=== PATIENT | male | born 1955 | race American Indian/Alaskan Native ===

== ENCOUNTER 2019-07-29 20:55 | Inpatient (IN) | payer OTHER ==
--- NOTE | 2019-07-29 21:23 | Emergency Department Report ---
Blank Doc - Documentation Documentation: 63-year-old male that presents with abdominal pain with chest pain. This initial assessment/diagnostic orders/clinical plan/treatment(s) is/are subject to change based on patient's health status, clinical progression and re- assessment by fellow clinical providers in the ED. Further treatment and workup at subsequent clinical providers discretion. Patient/guardians urged not to elope from the ED as their condition may be serious if not clinically assessed and managed. Initial orders include: 1- Patient sent to [facility] for further evaluation and treatment 2- labs 3- EKG 4- CXR 5- UA
[2019-07-29 22:23] LABS: Basophils % (Auto) 0.4 % (0.0-1.8); Eosinophils % (Auto) 0.2 % (0.0-4.3); Hematocrit 43.1 % (35.5-45.6); Lymphocytes % (Auto) 13.5 % (13.4-35.0); Mean Corpuscular HGB Conc 35 % (32-34); Mean Corpuscular Volume 96 fl (84-94); Monocytes # (Auto) 0.6 K/mm3 (0.0-0.8); Platelet Count 339 K/mm3 (140-440); Red Blood Count 4.49 M/mm3 (3.65-5.03); Red Cell Distribution Width 13.4 % (13.2-15.2)
--- NOTE | 2019-07-29 22:26 | XRay Report ---
CHEST 2 VIEWS INDICATION: Chest Pain. COMPARISON: None FINDINGS: Support devices: None. Heart: Within normal limits. Lungs: No acute air space or interstitial disease. Pleura: No significant pleural effusion. No pneumothorax. Additional findings: None. IMPRESSION: 1. No acute findings. Signer Name: Franko Redman MD Signed: 07/29/2019 10:22 PM Workstation Name: [id number]
[2019-07-29 22:51] LABS: Alanine Aminotransferase 98 units/L (7-56); BUN/Creatinine Ratio 8; Blood Urea Nitrogen 7 mg/dL (9-20); Calcium 9.7 mg/dL (8.4-10.2); Hemolysis Index 1
[2019-07-29 23:03] LABS: INR 1.04 (0.87-1.13); Partial Thromboplastin Time 30.3 Sec. (24.2-36.6)
[2019-07-30 02:00] LABS: Bilirubin,Urine NEG (Negative); Blood,Urine NEG (Negative); Color,Urine Amber (Yellow); Protein,Urine <15 mg/dL mg/dL (Negative)
[2019-07-30] MEDS ORDERED: DILAUDID IV ONE (03:00)
[2019-07-30] MEDS ORDERED: ZOFRAN IV ONE (03:00)
[2019-07-30] MEDS ORDERED: NACL 0.9% 1000 ML 1,000 ML IV ONE (03:00)
[2019-07-30] MEDS ORDERED: ZOFRAN ONE (03:07)
[2019-07-30] MEDS ORDERED: DILAUDID ONE (03:07)
[2019-07-30] MEDS ORDERED: NACL 0.9% 1000 ML 1,000 ML ONE ×2 (03:08→06:48)
--- NOTE | 2019-07-30 04:42 | Cat Scan Report ---
CT ABDOMEN AND PELVIS WITH CONTRAST INDICATION: Epigastric pain for 2 days CONTRAST: 100 cc Omnipaque 300 IV COMPARISON: None available. All CT scans at this location are performed using CT dose reduction for ALARA by means of automated e xposure control. FINDINGS: Mild bibasilar atelectatic changes are seen. No pneumoperitoneum is noted. A 1 cm probable cyst is noted in the spleen posteriorly. Fatty infiltration of the liver is seen without focal mass n oted. No urinary obstructive changes are seen. No evidence of bowel obstruction is noted. Right colon ic surgical changes are noted removal of the appendix. Colonic diverticulosis is seen without evidenc e of diverticulitis. No lymphadenopathy is seen. Small hiatal hernia is noted. Prostate shows a small central protrusion superiorly into the base of the bladder which is a somewhat nodular appearance an d measures 18 mm in diameter. No other bladder abnormalities are seen. Multiple tiny gallstones are seen with sludge. Borderline gallbladder wall prominence is seen and the re may be slight fluid within the wall. There is prominent biliary dilatation, both intrahepatic and extrahepatic. Innumerable tiny calculi are seen throughout the mid to lower portions of the common bi le duct. These are seen to the ampullary level. The pancreatic duct is mildly prominent at 4 mm. No p ancreatic mass is seen. There is moderate inflammation of the pancreas diffusely. No pseudocyst is se en. No obvious necrosis or hemorrhage are seen. IMPRESSION: 1. Gallstone pancreatitis with prominent choledocholithiasis, mild pancreatic ductal dilatation, and moderate diffuse pancreatitis without obvious complication. Biliary dilatation is prominent. Cholelit hiasis is seen with borderline gallbladder wall prominence and possible mild internal edema in the wa ll. 2. Prostate shows a central protrusion, somewhat nodular, into the base of the bladder. Clinical josefina elation is suggested. Signer Name: Shine Alegria MD Signed: 07/30/2019 4:37 AM Workstation Name: [employer]
[2019-07-30] MEDS ORDERED: SODIUM CHLORIDE FLUSH SYRINGE 10 ML IV PRN (04:56)
[2019-07-30] MEDS ORDERED: TYLENOL PO PRN (04:56)
[2019-07-30] MEDS ORDERED: ZOFRAN IV PRN (04:56)
[2019-07-30] MEDS ORDERED: REGLAN IV PRN (04:56)
[2019-07-30] MEDS ORDERED: MORPHINE IV PRN (04:56)
[2019-07-30] MEDS ORDERED: DILAUDID IV PRN (04:56)
--- NOTE | 2019-07-30 05:02 | History and Physical Report ---
<JUSTIN BALTAZAR - Last Filed: 07/30/19 05:34> History of Present Illness Date of examination: 07/30/19 Date of admission: 07/30/2019 Chief complaint: Abdominal pain, nausea, vomiting History of present illness: 63-year-old -Vietnamese male with history of BPH, HIV, hepatitis C, hypertension, tobacco abuse, marijuana abuse who presents [facility] with complaints of intermittent nausea and vomiting for the past week and half. Patient states that since Day he has been experiencing intermittent diffuse abdominal pain, nausea, and vomiting. Patient also complains of intermittent chest pain which is precipitated by his abdominal pain. He denies diarrhea. Patient states that he receives all his medical care at [facility]. He admits to being compliant with all medications. Denies: Headache,diarrhea, fever, hemoptysis, hematemesis, hematochezia, melena, shortness of breath, or recent sick contact Past History Past Medical History: HIV/AIDS, hypertension, other (BPH) Past Surgical History: appendectomy Social history: , lives with family (with sister), smoking (smokes cigar and marijuana), other (drinks beer occasionally) Family history: no significant family history Medications and Allergies Allergies Allergy/AdvReac Type Severity Reaction Status Date / Time ciprofloxacin Allergy Itching Verified 07/30/19 05:30 Home Medications Medication Instructions Recorded Confirmed Last Taken Type Emtricita/Rilpivirine/Tenof Df 1 each PO DAILY 07/30/19 07/30/19 Unknown History [Complera Tablet] Tamsulosin [Flomax] 0.4 mg PO QDAY 07/30/19 07/30/19 Unknown History amLODIPine [Norvasc] 10 mg PO DAILY 07/30/19 07/30/19 Unknown History HYDROcodone/APAP 5-325 [[place] 1 each PO Q6HR PRN #10 tablet 07/31/19 Unknown Rx 5/325] Review of Systems All systems: negative Gastrointestinal: abdominal pain, nausea, vomiting Genitourinary Male: urinary hesitancy Exam - Physical Exam Narrative exam: Physical exam General appearance: Present: No acute distress, alert and oriented 3, well- developed well-nourished, -Vietnamese male - EENT Eyes: Present: PERRL, EOM intact ENT: hearing intact, missing teeth - Neck Neck: Present: supple, normal ROM - Respiratory Respiratory effort: Non-labored Respiratory: CTA bilaterally - Cardiovascular Heart rate: 70(bpm) Rhythm: SR Heart Sounds: Present: S1 & S2. Absent: rub, click - Extremities Extremities: no ischemia, pulses intact, - Peripheral Assessment Peripheral Pulses: within normal limits - Abdominal General gastrointestinal: soft, non-tender, normal bowel sounds - Integumentary Integumentary: Present: warm, dry, - Musculoskeletal Musculoskeletal: Normal gait -Neurological Neurological: CN II-XII grossly intact - Psychiatric Psychiatric: cooperative - Constitutional Vitals: Temp Pulse Resp BP Pulse Ox 98.5 F 67 14 149/92 98 07/30/19 01:45 07/30/19 01:45 07/30/19 01:45 07/30/19 01:45 07/30/19 01:45 Results - Labs CBC & Chem 7: 07/29/19 21:48 07/29/19 21:48 Labs: Laboratory Last Values WBC 7.7 K/mm3 (4.5-11.0) 07/29/19 21:48 RBC 4.49 M/mm3 (3.65-5.03) 07/29/19 21:48 Hgb 15.0 gm/dl (11.8-15.2) 07/29/19 21:48 Hct 43.1 % (35.5-45.6) 07/29/19 21:48 MCV 96 fl (84-94) H 07/29/19 21:48 MCH 34 pg (28-32) H 07/29/19 21:48 MCHC 35 % (32-34) H 07/29/19 21:48 RDW 13.4 % (13.2-15.2) 07/29/19 21:48 Plt Count 339 K/mm3 (140-440) 07/29/19 21:48 Lymph % (Auto) 13.5 % (13.4-35.0) 07/29/19 21:48 [place] % (Auto) 8.0 % (0.0-7.3) H 07/29/19 21:48 Eos % (Auto) 0.2 % (0.0-4.3) 07/29/19 21:48 Baso % (Auto) 0.4 % (0.0-1.8) 07/29/19 21:48 Lymph # 1.0 K/mm3 (1.2-5.4) L 07/29/19 21:48 [place] # 0.6 K/mm3 (0.0-0.8) 07/29/19 21:48 Eos # 0.0 K/mm3 (0.0-0.4) 07/29/19 21:48 Baso # 0.0 K/mm3 (0.0-0.1) 07/29/19 21:48 Seg Neutrophils % 77.9 % (40.0-70.0) H 07/29/19 21:48 Seg Neutrophils # 6.0 K/mm3 (1.8-7.7) 07/29/19 21:48 PT 13.3 Sec. (12.2-14.9) 07/29/19 21:48 INR 1.04 (0.87-1.13) 07/29/19 21:48 APTT 30.3 Sec. (24.2-36.6) 07/29/19 21:48 Sodium 138 mmol/L (137-145) 07/29/19 21:48 Potassium 4.0 mmol/L (3.6-5.0) 07/29/19 21:48 Chloride 100.8 mmol/L (98-107) 07/29/19 21:48 Carbon Dioxide 22 mmol/L (22-30) 07/29/19 21:48 19 mmol/L 07/29/19 21:48 BUN 7 mg/dL (9-20) L 07/29/19 21:48 0.9 mg/dL (0.8-1.5) 07/29/19 21:48 Estimated GFR > 60 ml/min 07/29/19 21:48 8 % 07/29/19 21:48 Glucose 131 mg/dL (75-100) H 07/29/19 21:48 Calcium 9.7 mg/dL (8.4-10.2) 07/29/19 21:48 3.30 mg/dL (0.1-1.2) H 07/29/19 21:48 AST 94 units/L (5-40) H 07/29/19 21:48 ALT 98 units/L (7-56) H 07/29/19 21:48 381 units/L (35-129) H 07/29/19 21:48 < 0.010 ng/mL (0.00-0.029) 07/30/19 00:16 7.5 g/dL (6.3-8.2) 07/29/19 21:48 4.0 g/dL (3.9-5) 07/29/19 21:48 1.1 % 07/29/19 21:48 758 units/L (13-60) H 07/29/19 21:48 Mia (Yellow) 07/30/19 01:38 Clear (Clear) 07/30/19 01:38 7.0 (5.0-7.0) 07/30/19 01:38 Ur Specific [place] 1.009 (1.003-1.030) 07/30/19 01:38 <15 mg/dl mg/dL (Negative) 07/30/19 01:38 Neg mg/dL (Negative) 07/30/19 01:38 Tr mg/dL (Negative) 07/30/19 01:38 Neg (Negative) 07/30/19 01:38 Neg (Negative) 07/30/19 01:38 Neg (Negative) 07/30/19 01:38 2.0 mg/dL (<2.0) 07/30/19 01:38 Ur Leukocyte Esterase Neg (Negative) 07/30/19 01:38 1.0 /HPF (0.0-6.0) 07/30/19 01:38 2.0 /HPF (0.0-6.0) 07/30/19 01:38 - Imaging and Cardiology Imaging and Cardiology: CT Abdomen/Pelvis: FINDINGS: Mild bibasilar atelectatic changes are seen. No pneumoperitoneum is noted. A 1 cm probable cyst is noted in the spleen posteriorly. Fatty infiltration of the liver is seen withoutfocal mass noted. No urinary obstructive changes are seen. No evidence of bowel obstruction is noted. Right colonic surgical changes are noted removal of the appendix. Colonic divertic ulosis is seen without evidence of diverticulitis. No lymphadenopathy is seen. Small hiatal hernia is noted. Prostate shows a small central protrusion superiorly into the base of the bladder which is a somewhat nodular appearance and measures 18 mm in diameter. No other bladder abnormalities are seen. Multiple tiny gallstones are seen with sludge. Borderline gallbladder wall prominence is seen and there may be slight fluid within the wall. There is prominent biliary dilatation, both intrahepatic and extrahepatic. Innumerable tiny calculi are seen throughout the mid to lower portions of the common bile duct. These are seen to the ampullary level. The pancreatic duct is mildly prominent at 4 mm. No pancreatic mass is seen. There is moderate inflammation of the pancreas diffusely. No pseudocyst is seen. No obvious necrosis or hemorrhage are seen. IMPRESSION: 1. Gallstone pancreatitis with prominent choledocholithiasis, mild pancreatic ductal dilatation, and moderate diffuse pancreatitis without obvious complication. Biliary dilatation is prominent. Cholelithiasis is seen with borderline gallbladder wall prominence and possible mild internal edema in the wall. 2. Prostate shows a central protrusion, somewhat nodular, into the base of the bladder. Clinical correlation is suggested. CXR: FINDINGS: Support devices: None. Heart: Within normal limits. Lungs: No acute air space or interstitial disease. Pleura: No significant pleural effusion. No pneumothorax. Additional findings: None. IMPRESSION: 1. No acute findings. Assessment and Plan Assessment and plan: 63-year-old -Vietnamese male with history of BPH, HIV, hepatitis C, hypertension, tobacco abuse, marijuana abuse who presents [facility] with complaints of intermittent nausea and vomiting for the past week and half. Pancreatitis Cholelithiasis -CT Abd/Pelvis revealed pancreatitis with prominent choledocholithiasis, mild pancreatic ductal dilatation, and moderate diffuse pancreatitis without obvious complication. Cholelithiasis is seen with borderline gallbladder wall prominence and possible mild internal edema in the wall -Continue supportive care -Pain mgmt -NPO -On IVF -GI consult pending -General surgery consult pending Hypertension -Continue to monitor BP -Resume home antihypertensive meds to optimize BP once medication reconciliation is completed -IV hydralazine when necessary HIV positive -Resume Complera once home medication reconciliation is completed Tobacco Abuse -Smokes cigar every other day -Counseled for cessation -Nicotine patch PRN Marijuana Abuse -Self-reports daily marijuana use -Counseled for cessation DVT PPX -On Lovenox Advance Directives: No VTE prophylaxis?: Chemical Plan of care discussed with patient/family: Yes <JESSIE REESE - Last Filed: 08/01/19 00:39> History of Present Illness Date of admission: 07/30/19 06:17 Exam - Constitutional Vitals: Temp Pulse Resp BP Pulse Ox 98.0 F 47 L 15 140/74 96 07/31/19 16:17 07/31/19 16:17 07/31/19 16:17 07/31/19 16:17 07/31/19 16:17 Results - Labs CBC & Chem 7: 07/31/19 05:37 07/31/19 05:37 Labs: Laboratory Last Values WBC 6.0 K/mm3 (4.5-11.0) 07/31/19 05:37 RBC 4.42 M/mm3 (3.65-5.03) 07/31/19 05:37 Hgb 14.5 gm/dl (11.8-15.2) 07/31/19 05:37 Hct 42.5 % (35.5-45.6) 07/31/19 05:37 MCV 96 fl (84-94) H 07/31/19 05:37 MCH 33 pg (28-32) H 07/31/19 05:37 MCHC 34 % (32-34) 07/31/19 05:37 RDW 13.5 % (13.2-15.2) 07/31/19 05:37 Plt Count 282 K/mm3 (140-440) 07/31/19 05:37 Lymph % (Auto) 13.5 % (13.4-35.0) 07/29/19 21:48 [place] % (Auto) 8.0 % (0.0-7.3) H 07/29/19 21:48 Eos % (Auto) 0.2 % (0.0-4.3) 07/29/19 21:48 Baso % (Auto) 0.4 % (0.0-1.8) 07/29/19 21:48 Lymph # 1.0 K/mm3 (1.2-5.4) L 07/29/19 21:48 [place] # 0.6 K/mm3 (0.0-0.8) 07/29/19 21:48 Eos # 0.0 K/mm3 (0.0-0.4) 07/29/19 21:48 Baso # 0.0 K/mm3 (0.0-0.1) 07/29/19 21:48 Seg Neutrophils % 77.9 % (40.0-70.0) H 07/29/19 21:48 Seg Neutrophils # 6.0 K/mm3 (1.8-7.7) 07/29/19 21:48 PT 12.8 Sec. (12.2-14.9) 07/30/19 10:33 INR 0.99 (0.87-1.13) 07/30/19 10:33 APTT 30.3 Sec. (24.2-36.6) 07/29/19 21:48 Sodium 138 mmol/L (137-145) 07/31/19 05:37 Potassium 3.8 mmol/L (3.6-5.0) 07/31/19 05:37 Chloride 100.6 mmol/L (98-107) 07/31/19 05:37 Carbon Dioxide 21 mmol/L (22-30) L 07/31/19 05:37 20 mmol/L 07/31/19 05:37 BUN 8 mg/dL (9-20) L 07/31/19 05:37 0.9 mg/dL (0.8-1.5) 07/31/19 05:37 Estimated GFR > 60 ml/min 07/31/19 05:37 9 % 07/31/19 05:37 Glucose 87 mg/dL (75-100) 07/31/19 05:37 Calcium 9.2 mg/dL (8.4-10.2) 07/31/19 05:37 4.20 mg/dL (0.1-1.2) H 07/31/19 05:37 3.6 mg/dL (0-0.2) H 07/30/19 10:33 0.7 mg/dL 07/30/19 10:33 AST 83 units/L (5-40) H 07/31/19 05:37 ALT 76 units/L (7-56) H 07/31/19 05:37 314 units/L (35-129) H 07/31/19 05:37 136 units/L (55-170) 07/31/19 14:13 CK-MB (CK-2) 2.2 ng/mL (0.0-4.0) 07/31/19 14:13 CK-MB (CK-2) Rel Index 1.6 (0-4) 07/31/19 14:13 < 0.010 ng/mL (0.00-0.029) 07/31/19 14:13 6.3 g/dL (6.3-8.2) 07/31/19 05:37 3.2 g/dL (3.9-5) L 07/31/19 05:37 1.0 % 07/31/19 05:37 160 units/L (13-60) H 07/31/19 05:37 Mia (Yellow) 07/30/19 01:38 Clear (Clear) 07/30/19 01:38 7.0 (5.0-7.0) 07/30/19 01:38 Ur Specific [place] 1.009 (1.003-1.030) 07/30/19 01:38 <15 mg/dl mg/dL (Negative) 07/30/19 01:38 Neg mg/dL (Negative) 07/30/19 01:38 Tr mg/dL (Negative) 07/30/19 01:38 Neg (Negative) 07/30/19 01:38 Neg (Negative) 07/30/19 01:38 Neg (Negative) 07/30/19 01:38 2.0 mg/dL (<2.0) 07/30/19 01:38 Ur Leukocyte Esterase Neg (Negative) 07/30/19 01:38 1.0 /HPF (0.0-6.0) 07/30/19 01:38 2.0 /HPF (0.0-6.0) 07/30/19 01:38 Presumptive negative 07/30/19 05:34 Presumptive negative 07/30/19 05:34 Ur Barbiturates Screen Presumptive negative 07/30/19 05:34 Ur Phencyclidine Scrn Presumptive negative 07/30/19 05:34 Ur Amphetamines Screen Presumptive negative 07/30/19 05:34 U Benzodiazepines Scrn Presumptive negative 07/30/19 05:34 Presumptive negative 07/30/19 05:34 U Marijuana (THC) Screen Presumptive positive 07/30/19 05:34 Disclamer 07/30/19 05:34 Assessment and Plan Assessment and plan: Patient seen and examined, agree with above plan of care
[2019-07-30] MEDS ORDERED: APRESOLINE IV PRN (05:33)
[2019-07-30 05:55] LABS: Amphetamine Screen,Urine PRESUMPTIVE NEGATIVE; Benzodiazepines Screen,Urine PRESUMPTIVE NEGATIVE; Cocaine Screen,Urine PRESUMPTIVE NEGATIVE; Methadone Screen,Urine PRESUMPTIVE NEGATIVE; Opiate Screen,Urine PRESUMPTIVE NEGATIVE
[2019-07-30 06:13] LABS: Cannabinoid Screen,Urine PRESUMPTIVE POSITIVE
[2019-07-30] MEDS: NACL 0.9% 1000 ML 1,000 ML IV SCH ×2 (06:54→19:14)
--- NOTE | 2019-07-30 07:06 | Emergency Department Report ---
ED Abdominal Pain HPI - General Chief Complaint: Chest Pain Stated Complaint: ABD PAIN,VOMITING,CHEST TIGHTNESS,NUMBNESS, CHILLS Time Seen by Provider: 07/29/19 21:22 Source: patient Mode of arrival: Ambulatory Limitations: No Limitations - History of Present Illness Initial Comments: Mr. Meadows is a 63-year-old male with history of HIV, hypertension, hepatitis who presents with epigastric pain for several weeks. Pain became became severe over the past 2 days with nausea. He has intact appetite. However, food and drink intake exacerbates the pain. He denies fever. No radiation of the pain. No history of diarrhea. He has taken ART since the . He is followed by IV physician Dr. Benoit. He was a former heavy drinker. He would drink since a 6 pack of beer daily. He now drinks on the weekends. Stopped drinking alcohol heavily for 5 years ago. MD Complaint: abdominal pain -: Gradual, week(s) (several) Location: epigastric Severity: severe Severity scale (0 -10): 8 Quality: aching, sharp, dull Consistency: colicky Improves With: nothing Worsens With: eating Associated Symptoms: nausea - Related Data Home Medications Medication Instructions Recorded Confirmed Last Taken Emtricita/Rilpivirine/Tenof Df 1 each PO DAILY 07/30/19 07/30/19 Unknown [Complera Tablet] Tamsulosin [Flomax] 0.4 mg PO QDAY 07/30/19 07/30/19 Unknown amLODIPine [Norvasc] 10 mg PO DAILY 07/30/19 07/30/19 Unknown Allergies Allergy/AdvReac Type Severity Reaction Status Date / Time ciprofloxacin Allergy Itching Verified 07/30/19 05:30 ED Review of Systems ROS: Stated complaint: ABD PAIN,VOMITING,CHEST TIGHTNESS,NUMBNESS, CHILLS Other details as noted in HPI Comment: All other systems reviewed and negative Constitutional: denies: fever, malaise Respiratory: denies: cough Cardiovascular: denies: chest pain Gastrointestinal: abdominal pain, nausea Musculoskeletal: denies: back pain ED Past Medical Hx - Past Medical History Previous Medical History?: Yes Hx Hypertension: Yes Hx HIV: Yes Additional medical history: Hep C - Surgical History Past Surgical History?: Yes Hx Appendectomy: Yes - Social History Smoking Status: Current Every Day Smoker Substance Use Type: Alcohol, Marijuana - Medications Home Medications: Home Medications Medication Instructions Recorded Confirmed Last Taken Type Emtricita/Rilpivirine/Tenof Df 1 each PO DAILY 07/30/19 07/30/19 Unknown History [Complera Tablet] Tamsulosin [Flomax] 0.4 mg PO QDAY 07/30/19 07/30/19 Unknown History amLODIPine [Norvasc] 10 mg PO DAILY 07/30/19 07/30/19 Unknown History ED Physical Exam - General Limitations: No Limitations General appearance: alert, in no apparent distress, other (pleasant appears uncomfortable nontoxic) - Head Head exam: Present: atraumatic, normocephalic - Eye Eye exam: Present: normal appearance - ENT ENT exam: Present: mucous membranes moist - Neck Neck exam: Present: normal inspection - Respiratory Respiratory exam: Present: normal lung sounds bilaterally. Absent: respiratory distress, wheezes, rales, rhonchi - Cardiovascular Cardiovascular Exam: Present: regular rate, normal rhythm, normal heart sounds. Absent: systolic murmur, diastolic murmur, rubs, gallop - GI/Abdominal GI/Abdominal exam: Present: soft, normal bowel sounds. Absent: distended, tenderness, guarding, rebound - Rectal Rectal exam: Present: deferred - Extremities Exam Extremities exam: Present: normal inspection - Back Exam Back exam: Present: normal inspection - Neurological Exam Neurological exam: Present: alert, oriented X3 - Psychiatric Psychiatric exam: Present: normal affect, normal mood - Skin Skin exam: Present: warm, dry, intact, normal color. Absent: rash ED Course Vital Signs 07/29/19 07/30/19 21:21 01:45 Temperature 98 F 98.5 F Pulse Rate 74 67 Respiratory 20 14 Rate Blood Pressure 161/86 Blood Pressure 149/92 [Left] O2 Sat by Pulse 99 98 Oximetry ED Medical Decision Making - Lab Data Result diagrams: 07/29/19 21:48 07/29/19 21:48 Laboratory Results - last 24 hr 07/29/19 07/29/19 07/29/19 21:48 21:48 21:48 WBC 7.7 RBC 4.49 Hgb 15.0 Hct 43.1 MCV 96 H MCH 34 H MCHC 35 H RDW 13.4 Plt Count 339 Lymph % (Auto) 13.5 [place] % (Auto) 8.0 H Eos % (Auto) 0.2 Baso % (Auto) 0.4 Lymph # 1.0 L [place] # 0.6 Eos # 0.0 Baso # 0.0 Seg Neutrophils % 77.9 H Seg Neutrophils # 6.0 PT 13.3 INR 1.04 APTT 30.3 Sodium 138 Potassium 4.0 Chloride 100.8 Carbon Dioxide 22 Anion Gap 19 BUN 7 L Creatinine 0.9 Estimated GFR > 60 BUN/Creatinine Ratio 8 Glucose 131 H Calcium 9.7 Total Bilirubin 3.30 H AST 94 H ALT 98 H Alkaline Phosphatase 381 H Troponin T < 0.010 Total Protein 7.5 Albumin 4.0 Albumin/Globulin Ratio 1.1 Lipase 758 H Urine Color Urine Turbidity Urine pH Ur Specific [place] Urine Protein Urine Glucose (UA) Urine Ketones Urine Blood Urine Nitrite Urine Bilirubin Urine Urobilinogen Ur Leukocyte Esterase Urine WBC (Auto) Urine RBC (Auto) Urine Opiates Screen Urine Methadone Screen Ur Barbiturates Screen Ur Phencyclidine Scrn Ur Amphetamines Screen U Benzodiazepines Scrn Urine Cocaine Screen U Marijuana (THC) Screen Drugs of Abuse Note 07/30/19 07/30/19 07/30/19 00:16 01:38 05:34 WBC RBC Hgb Hct MCV MCH MCHC RDW Plt Count Lymph % (Auto) [place] % (Auto) Eos % (Auto) Baso % (Auto) Lymph # [place] # Eos # Baso # Seg Neutrophils % Seg Neutrophils # PT INR APTT Sodium Potassium Chloride Carbon Dioxide Anion Gap BUN Creatinine Estimated GFR BUN/Creatinine Ratio Glucose Calcium Total Bilirubin AST ALT Alkaline Phosphatase Troponin T < 0.010 Total Protein Albumin Albumin/Globulin Ratio Lipase Urine Color Mia Urine Turbidity Clear Urine pH 7.0 Ur Specific [place] 1.009 Urine Protein <15 mg/dl Urine Glucose (UA) Neg Urine Ketones Tr Urine Blood Neg Urine Nitrite Neg Urine Bilirubin Neg Urine Urobilinogen 2.0 Ur Leukocyte Esterase Neg Urine WBC (Auto) 1.0 Urine RBC (Auto) 2.0 Urine Opiates Screen Presumptive negative Urine Methadone Screen Presumptive negative Ur Barbiturates Screen Presumptive negative Ur Phencyclidine Scrn Presumptive negative Ur Amphetamines Screen Presumptive negative U Benzodiazepines Scrn Presumptive negative Urine Cocaine Screen Presumptive negative U Marijuana (THC) Screen Presumptive positive Drugs of Abuse Note Disclamer - Radiology Data Radiology results: report reviewed - Medical Decision Making Mr. Schaefer presents with findings of acute pancreatitis with elevated lipase. CT abdomen and pelvis remarkable for gallstone pancreatitis with prominent choledocho cholelithiasis pancreatic ductal dilatation diffuse pancreatitis. Biliary dilatation prominent cholelithiasis also seen within the gallbladder. Will need GI and MRCP. Admitted to the hospital service in fair condition. CT abdomen and pelvis also revealed prominent prostate gland. Will need outpatient evaluation. Critical care attestation.: If time is entered above; I have spent that time in minutes in the direct care of this critically ill patient, excluding procedure time. ED Disposition Clinical Impression: Biliary acute pancreatitis, Choledocholithiasis Disposition: OP ADMIT IP TO THIS HOSP Is pt being admited?: Yes Does the pt Need Aspirin: No Condition: Fair
--- NOTE | 2019-07-30 08:12 | Consultation ---
History of Present Illness Consult date: 07/30/19 Reason for consult: abdominal pain Requesting physician: LETTY LY Chief complaint: abdominal pain - History of present illness History of present illness: 63yo male with history of HIV and hepatitis C presents to ED with complaints of intermittent nausea and vomiting for the past week and half. Patient states that since Day he has been experiencing intermittent diffuse abdominal pain, nausea, and vomiting. Patient also complains of intermittent chest pain which is precipitated by his abdominal pain. He denies diarrhea. He has not had issues like this prior to this month. Currently, his pain has essentially resolved. He is no longer nauseated. He had a little bit of water earlier today and tolerated it. As a side note, patient reports that he would prefer to be discharged and return for surgery as his mother recently and her is scheduled for this Saturday. Also, he has just started a new job and is not sure if his insurance has started yet. Past History Past Medical History: HIV/AIDS, hypertension, other (BPH) Past Surgical History: appendectomy Social history: , lives with family (with sister), smoking (smokes cigar and marijuana), other (drinks beer occasionally) Family history: no significant family history Medications and Allergies Allergies Allergy/AdvReac Type Severity Reaction Status Date / Time ciprofloxacin Allergy Itching Verified 07/30/19 05:30 Home Medications Medication Instructions Recorded Confirmed Last Taken Type Emtricita/Rilpivirine/Tenof Df 1 each PO DAILY 07/30/19 07/30/19 Unknown History [Complera Tablet] Tamsulosin [Flomax] 0.4 mg PO QDAY 07/30/19 07/30/19 Unknown History amLODIPine [Norvasc] 10 mg PO DAILY 07/30/19 07/30/19 Unknown History Active Meds: Active Medications Acetaminophen (Tylenol) 650 mg PO Q4H PRN PRN Reason: Pain MILD(1-3)/Fever >100.5/MUNGUIA Enoxaparin Sodium (Lovenox) 40 mg SUB-Q QDAY HARVINDER Hydralazine HCl (Apresoline) 10 mg IV Q4H PRN PRN Reason: Blood Pressure Hydromorphone HCl (Dilaudid) 0.5 mg IV Q3H PRN PRN Reason: Pain , Severe (7-10) Sodium Chloride (Nacl 0.9% 1000 Ml) 1,000 mls @ 100 mls/hr IV DIRECT HARVINDER Last Admin: 07/30/19 06:54 Dose: 100 mls/hr Documented by: Metoclopramide HCl (Reglan) 10 mg IV Q6H PRN PRN Reason: Nausea And Vomiting Morphine Sulfate (Morphine) 2 mg IV Q4H PRN PRN Reason: Pain, Moderate (4-6) Ondansetron HCl (Zofran) 4 mg IV Q6H PRN PRN Reason: Nausea And Vomiting Sodium Chloride (Sodium Chloride Flush Syringe 10 Ml) 10 ml IV BID HARVINDER Sodium Chloride (Sodium Chloride Flush Syringe 10 Ml) 10 ml IV PRN PRN PRN Reason: LINE FLUSH Review of Systems - Constitutional no fever, no chills, no chronic pain - Cardiovascular no shortness of breath - Respiratory no cough - Gastrointestinal abdominal pain, nausea, vomiting, no change in bowel habits, no hematemesis, no coffee ground emesis, no BRBPR, no melena, no hematochezia, no loss of appetite, no heartburn, no dyspepsia/bloating - Genitourinary no dysuria - Muskuloskeletal no low back pain - Integumentary no rash, no sores, no wounds Exam Vital Signs Temp Pulse Resp BP Pulse Ox 98 F 74 20 161/86 99 07/29/19 21:21 07/29/19 21:21 07/29/19 21:21 07/29/19 21:21 07/29/19 21:21 - General physical appearance Positive: well developed, well nourished, no distress, no pain, other (pleasant) - Respiratory Positive: normal expansion, normal respiratory effort, clear to auscultation - Cardiovascular Rhythm: regular - Abdomen Abdomen: Present: soft, tender (minimal in epigastric area), bowel sounds hypoactive, surgical scars (well healed RLQ transverse incision). Absent: distended, masses, rebound, guarding, rigid, organomegaly - Integumentary no rash, no growths - Neurologic Neurologic: alert and oriented to time, place and person, motor strength and sensation are grossly intact - Psychiatric Psychiatric: appropriate mood/affect, intact judgment & insight, cooperative Results - Labs 07/29/19 21:48 07/29/19 21:48 Abnormal lab results 07/29/19 07/29/19 Range/Units 21:48 21:48 MCV 96 H (84-94) fl MCH 34 H (28-32) pg MCHC 35 H (32-34) % [place] % (Auto) 8.0 H (0.0-7.3) % Lymph # 1.0 L (1.2-5.4) K/mm3 Seg Neutrophils % 77.9 H (40.0-70.0) % BUN 7 L (9-20) mg/dL Glucose 131 H (75-100) mg/dL Total Bilirubin 3.30 H (0.1-1.2) mg/dL AST 94 H (5-40) units/L ALT 98 H (7-56) units/L Alkaline Phosphatase 381 H (35-129) units/L Lipase 758 H (13-60) units/L Diabetes panel 07/29/19 Range/Units 21:48 Sodium 138 (137-145) mmol/L Potassium 4.0 (3.6-5.0) mmol/L Chloride 100.8 (98-107) mmol/L Carbon Dioxide 22 (22-30) mmol/L BUN 7 L (9-20) mg/dL Creatinine 0.9 (0.8-1.5) mg/dL Glucose 131 H (75-100) mg/dL Calcium 9.7 (8.4-10.2) mg/dL AST 94 H (5-40) units/L ALT 98 H (7-56) units/L Alkaline Phosphatase 381 H (35-129) units/L Total Protein 7.5 (6.3-8.2) g/dL Albumin 4.0 (3.9-5) g/dL Calcium panel 07/29/19 Range/Units 21:48 Calcium 9.7 (8.4-10.2) mg/dL Albumin 4.0 (3.9-5) g/dL Pituitary panel 07/29/19 Range/Units 21:48 Sodium 138 (137-145) mmol/L Potassium 4.0 (3.6-5.0) mmol/L Chloride 100.8 (98-107) mmol/L Carbon Dioxide 22 (22-30) mmol/L BUN 7 L (9-20) mg/dL Creatinine 0.9 (0.8-1.5) mg/dL Glucose 131 H (75-100) mg/dL Calcium 9.7 (8.4-10.2) mg/dL Adrenal panel 07/29/19 Range/Units 21:48 Sodium 138 (137-145) mmol/L Potassium 4.0 (3.6-5.0) mmol/L Chloride 100.8 (98-107) mmol/L Carbon Dioxide 22 (22-30) mmol/L BUN 7 L (9-20) mg/dL Creatinine 0.9 (0.8-1.5) mg/dL Glucose 131 H (75-100) mg/dL Calcium 9.7 (8.4-10.2) mg/dL Total Bilirubin 3.30 H (0.1-1.2) mg/dL AST 94 H (5-40) units/L ALT 98 H (7-56) units/L Alkaline Phosphatase 381 H (35-129) units/L Total Protein 7.5 (6.3-8.2) g/dL Albumin 4.0 (3.9-5) g/dL - Imaging CT scan - abdomen: report reviewed, image reviewed CT scan - pelvis: report reviewed, image reviewed Assessment and Plan - Patient Problems (1) Biliary acute pancreatitis Current Visit: Yes Status: Acute Qualifiers: Acute pancreatitis complication: no infection or necrosis Qualified Code(s): K85.10 - Biliary acute pancreatitis without necrosis or infection Plan to address problem: Pt stable. Clinically, it appears as though he has passed the stones that were seen in the duct on CT scan. We discussed that normally, in this situation, we would remove the gallbladder prior to discharge to avoid the risk of recurrent pancreatitis. In light of his mother's upcoming , we could consider discharging him once his labs have improved and he is able to tolerate a liquid diet. We would keep him on a liquid diet and then bring him back electively for surgery. I reminded him that we run the risk that in the interim, he may have another episode of pancreatitis. We cannot predict, but it could be worse the next time. Another complicating factor is that he just started a new job. He is not sure if the insurance benefit has started. I asked that he call his employer to see what is the status of the insurance. In the meantime, we will ask Case Management to assist him with financial aid director, if needed. Recheck labs this afternoon. If they are improved and GI agrees, possibly consider clear liquid diet this evening. Discussed the situation with GI. Will follow along. Please call with questions. Time=35min
--- NOTE | 2019-07-30 10:49 | Gastroenterology Consultation ---
<CHATO LANDRY - Last Filed: 07/30/19 10:52> History of Present Illness - Reason for Consult Consult date: 07/30/19 acute pancreatitis/gallstones Requesting physician: JUSTIN BALTAZAR - History of Present Illness Patient is a 63 y/o male with PMH of HIV, hepatitis C, HTN, and BPH who presented to ED for evaluation abdominal pain (epigastric) with associated N/V that has been intermittent since but became significantly worse y day with symptoms exacerbated with any PO intake. Upon admission, he was found to have acute gallstone pancreatitis with choledocholithiasis seen on CT to which GI has been consulted. This morning, patient was resting in bed w/o acute distress. He reports feeling better with abdominal pain now significantly improved and no N/V. Denies fever, CP, SOB, jaundice, wt loss, signs of bl eeding, or LGI symptoms. Admits to occasional alcohol use. Previous abd surgery with appendectomy. States concern over need to be discharge for his mother's that this scheduled for this coming up Saturday and lack of insurance with recently starting a new job. Past History Past Medical History: HIV/AIDS, hypertension, other (BPH) Past Surgical History: appendectomy Social history: , lives with family (with sister), smoking (smokes cigar and marijuana), other (drinks beer occasionally) Family history: no significant family history Medications and Allergies Allergies Allergy/AdvReac Type Severity Reaction Status Date / Time ciprofloxacin Allergy Itching Verified 07/30/19 05:30 Home Medications Medication Instructions Recorded Confirmed Last Taken Type Emtricita/Rilpivirine/Tenof Df 1 each PO DAILY 07/30/19 07/30/19 Unknown History [Complera Tablet] Tamsulosin [Flomax] 0.4 mg PO QDAY 07/30/19 07/30/19 Unknown History amLODIPine [Norvasc] 10 mg PO DAILY 07/30/19 07/30/19 Unknown History Active Meds: Active Medications Acetaminophen (Tylenol) 650 mg PO Q4H PRN PRN Reason: Pain MILD(1-3)/Fever >100.5/MUNGUIA Enoxaparin Sodium (Lovenox) 40 mg SUB-Q QDAY [facility]IND[facility] Hydralazine HCl (Apresoline) 10 mg IV Q4H PRN PRN Reason: Blood Pressure Hydromorphone HCl (Dilaudid) 0.5 mg IV Q3H PRN PRN Reason: Pain , Severe (7-10) Sodium Chloride (Nacl 0.9% 1000 Ml) 1,000 mls @ 100 mls/hr IV DIRECT HARVINDER Last Admin: 07/30/19 06:54 Dose: 100 mls/hr Documented by: Metoclopramide HCl (Reglan) 10 mg IV Q6H PRN PRN Reason: Nausea And Vomiting Morphine Sulfate (Morphine) 2 mg IV Q4H PRN PRN Reason: Pain, Moderate (4-6) Ondansetron HCl (Zofran) 4 mg IV Q6H PRN PRN Reason: Nausea And Vomiting Sodium Chloride (Sodium Chloride Flush Syringe 10 Ml) 10 ml IV BID HARVINDER Sodium Chloride (Sodium Chloride Flush Syringe 10 Ml) 10 ml IV PRN PRN PRN Reason: LINE FLUSH medications reviewed/updated as required Review of Systems - Review of Systems All systems: negative Gastrointestinal: abdominal pain, nausea, vomiting Exam - Constitutional Vital Signs: Temp Pulse Resp BP Pulse Ox 97.6 F 42 L 20 148/78 94 07/30/19 08:20 07/30/19 08:20 07/30/19 08:20 07/30/19 08:20 07/30/19 08:20 General appearance: no acute distress - EENT Eyes: PERRL, EOM intact ENT: hearing intact - Respiratory Respiratory effort: normal - Cardiovascular Rhythm: regular - Gastrointestinal General gastrointestinal: Present: soft, tender (slight TTP in epigastric area), non-distended, normal bowel sounds, other (+scar from previous surgery) - Neurologic Neurological: alert and oriented x3 - Labs CBC & Chem 7: 07/29/19 21:48 07/29/19 21:48 Lab Results: Laboratory Results - last 24 hr 07/29/19 07/29/19 07/29/19 21:48 21:48 21:48 WBC 7.7 RBC 4.49 Hgb 15.0 Hct 43.1 MCV 96 H MCH 34 H MCHC 35 H RDW 13.4 Plt Count 339 Lymph % (Auto) 13.5 [place] % (Auto) 8.0 H Eos % (Auto) 0.2 Baso % (Auto) 0.4 Lymph # 1.0 L [place] # 0.6 Eos # 0.0 Baso # 0.0 Seg Neutrophils % 77.9 H Seg Neutrophils # 6.0 PT 13.3 INR 1.04 APTT 30.3 Sodium 138 Potassium 4.0 Chloride 100.8 Carbon Dioxide 22 Anion Gap 19 BUN 7 L Creatinine 0.9 Estimated GFR > 60 BUN/Creatinine Ratio 8 Glucose 131 H Calcium 9.7 Total Bilirubin 3.30 H AST 94 H ALT 98 H Alkaline Phosphatase 381 H Troponin T < 0.010 Total Protein 7.5 Albumin 4.0 Albumin/Globulin Ratio 1.1 Lipase 758 H Urine Color Urine Turbidity Urine pH Ur Specific [place] Urine Protein Urine Glucose (UA) Urine Ketones Urine Blood Urine Nitrite Urine Bilirubin Urine Urobilinogen Ur Leukocyte Esterase Urine WBC (Auto) Urine RBC (Auto) Urine Opiates Screen Urine Methadone Screen Ur Barbiturates Screen Ur Phencyclidine Scrn Ur Amphetamines Screen U Benzodiazepines Scrn Urine Cocaine Screen U Marijuana (THC) Screen Drugs of Abuse Note 07/30/19 07/30/19 07/30/19 00:16 01:38 05:34 WBC RBC Hgb Hct MCV MCH MCHC RDW Plt Count Lymph % (Auto) [place] % (Auto) Eos % (Auto) Baso % (Auto) Lymph # [place] # Eos # Baso # Seg Neutrophils % Seg Neutrophils # PT INR APTT Sodium Potassium Chloride Carbon Dioxide Anion Gap BUN Creatinine Estimated GFR BUN/Creatinine Ratio Glucose Calcium Total Bilirubin AST ALT Alkaline Phosphatase Troponin T < 0.010 Total Protein Albumin Albumin/Globulin Ratio Lipase Urine Color Mia Urine Turbidity Clear Urine pH 7.0 Ur Specific [place] 1.009 Urine Protein <15 mg/dl Urine Glucose (UA) Neg Urine Ketones Tr Urine Blood Neg Urine Nitrite Neg Urine Bilirubin Neg Urine Urobilinogen 2.0 Ur Leukocyte Esterase Neg Urine WBC (Auto) 1.0 Urine RBC (Auto) 2.0 Urine Opiates Screen Presumptive negative Urine Methadone Screen Presumptive negative Ur Barbiturates Screen Presumptive negative Ur Phencyclidine Scrn Presumptive negative Ur Amphetamines Screen Presumptive negative U Benzodiazepines Scrn Presumptive negative Urine Cocaine Screen Presumptive negative U Marijuana (THC) Screen Presumptive positive Drugs of Abuse Note Disclamer Assessment and Plan 1.biliary acute pancreatitis -afebrile -WBC, H/H, plt, and INR WNL -LFTs yesterday-T.barry 3.30, AST 94, ALT 98, alk phos 381 -abd CT showed-Gallstone pancreatitis with prominent choledocholithiasis, mild pancreatic ductal dilatation, and moderate diffuse pancreatitis without obvious complication -surgery following-recommendations reviewed -clinically, patient reports feeling better this am with abd pain significantly improved and no N/V (passed stone?) -will order repeat labs for today- if improved recommend MRCP for further evaluation and if negative for choledocholithiasis, patient okay to be d/c in am once tolerating PO -if labs w/o improvement with plan for ERCP tomorrow (would need to be NPO after MN) -continue to trend labs and supportive care (IVF, pain control, antiemetics, etc.) -will follow <ALYCIA HENSON - Last Filed: 07/31/19 11:50> Medications and Allergies Active Meds: Active Medications Acetaminophen (Tylenol) 650 mg PO Q4H PRN PRN Reason: Pain MILD(1-3)/Fever >100.5/MUNGUIA Enoxaparin Sodium (Lovenox) 40 mg SUB-Q QDAY [facility] Last Admin: 07/30/19 13:24 Dose: 40 mg Documented by: Hydralazine HCl (Apresoline) 10 mg IV Q4H PRN PRN Reason: Blood Pressure Hydromorphone HCl (Dilaudid) 0.5 mg IV Q3H PRN PRN Reason: Pain , Severe (7-10) Sodium Chloride (Nacl 0.9% 1000 Ml) 1,000 mls @ 100 mls/hr IV DIRECT [facility] Last Admin: 07/31/19 05:19 Dose: 100 mls/hr Documented by: Sodium Chloride (Nacl 0.9% 1000 Ml) 1,000 mls @ 50 mls/hr IV DIRECT [facility] Stop: 08/01/19 09:59 Last Admin: 07/31/19 10:55 Dose: 50 mls/hr Documented by: Metoclopramide HCl (Reglan) 10 mg IV Q6H PRN PRN Reason: Nausea And Vomiting Morphine Sulfate (Morphine) 2 mg IV Q4H PRN PRN Reason: Pain, Moderate (4-6) Ondansetron HCl (Zofran) 4 mg IV Q6H PRN PRN Reason: Nausea And Vomiting Sodium Chloride (Sodium Chloride Flush Syringe 10 Ml) 10 ml IV BID [facility] Last Admin: 07/31/19 02:53 Dose: Not Given Documented by: Sodium Chloride (Sodium Chloride Flush Syringe 10 Ml) 10 ml IV PRN PRN PRN Reason: LINE FLUSH Exam - Constitutional Vital Signs: Temp Pulse Resp BP Pulse Ox 98.2 F 65 16 158/83 98 07/31/19 10:51 07/31/19 10:51 07/31/19 10:51 07/31/19 10:51 07/31/19 10:51 - Labs CBC & Chem 7: 07/31/19 05:37 07/31/19 05:37 Lab Results: Laboratory Results - last 24 hr 07/30/19 07/31/19 07/31/19 10:33 05:37 05:37 WBC 6.0 RBC 4.42 Hgb 14.5 Hct 42.5 MCV 96 H MCH 33 H MCHC 34 RDW 13.5 Plt Count 282 Sodium 138 Potassium 3.8 Chloride 100.6 Carbon Dioxide 21 L Anion Gap 20 BUN 8 L Creatinine 0.9 Estimated GFR > 60 BUN/Creatinine Ratio 9 Glucose 87 Calcium 9.2 Total Bilirubin 4.20 H AST 83 H ALT 76 H Alkaline Phosphatase 314 H Total Protein 6.3 Albumin 3.2 L Albumin/Globulin Ratio 1.0 Lipase 669 H 07/31/19 05:37 WBC RBC Hgb Hct MCV MCH MCHC RDW Plt Count Sodium Potassium Chloride Carbon Dioxide Anion Gap BUN Creatinine Estimated GFR BUN/Creatinine Ratio Glucose Calcium Total Bilirubin AST ALT Alkaline Phosphatase Total Protein Albumin Albumin/Globulin Ratio Lipase 160 H Assessment and Plan Pt with multiple CBD stones. Pancreatitis clinically resolved. Pt seen and examined on 07/30. ERCP tomorrow.
[2019-07-30 11:10] LABS: Albumin 3.5 g/dL (3.9-5); Bilirubin,Direct 3.6 mg/dL (0-0.2)
[2019-07-30 11:11] LABS: INR 0.99 (0.87-1.13)
--- NOTE | 2019-07-30 12:14 | Progress Note ---
Assessment and Plan Assessment and plan: 63-year-old -[place] male with history of BPH, HIV, hepatitis C, hypertension, tobacco abuse, marijuana abuse who presents [facility] with complaints of intermittent nausea and vomiting for the past week and half. Pancreatitis Cholelithiasis -CT Abd/Pelvis revealed pancreatitis with prominent choledocholithiasis, mild pancreatic ductal dilatation, and moderate diffuse pancreatitis without obvious complication. Cholelithiasis is seen with borderline gallbladder wall prominence and possible mild internal edema in the wall -Continue supportive care -Pain mgmt -NPO -On IVF -GI consulted, evaluated by Dr. hammond. -I discussed with Dr. Hammond. For ERCP tomorrow. -General surgery consulted, evaluated by anuj Alexanedr Hypertension -Continue to monitor BP - -IV hydralazine when necessary HIV positive -Resume HAART when started on reg diet Tobacco Abuse -Smokes cigar every other day -Counseled for cessation -Nicotine patch PRN Marijuana Abuse -Self-reports daily marijuana use -Counseled for cessation DVT PPX -On Lovenox patient lost his mother 1 week ago and hopes to go home tomorrow, for on Sat. History Interval history: Abdominal pain Hospitalist Physical - Physical exam Narrative exam: Gen: Not in acute distress,lying in bed, HEENT: Normocephalic, atraumatic Neck: supple, no JVD Heart: S1 and S2 reg, no murmurs, rubs or gallop Lungs: Clear to auscultation, no rhonchi, no wheeze Abd: soft, mild tender, no rebound tenderness, non distended, normal BS, Ext: No edema, no clubbing, no cyanosis Neuro: Awake, alert, oriented X 3, no focal neurological signs - Constitutional Vitals: Temp Pulse Resp BP Pulse Ox 97.6 F 42 L 20 148/78 94 07/30/19 08:20 07/30/19 08:20 07/30/19 08:20 07/30/19 08:20 07/30/19 08:20 Results - Labs CBC & Chem 7: 07/29/19 21:48 07/29/19 21:48 Labs: Laboratory Last Values WBC 7.7 K/mm3 (4.5-11.0) 07/29/19 21:48 RBC 4.49 M/mm3 (3.65-5.03) 07/29/19 21:48 Hgb 15.0 gm/dl (11.8-15.2) 07/29/19 21:48 Hct 43.1 % (35.5-45.6) 07/29/19 21:48 MCV 96 fl (84-94) H 07/29/19 21:48 MCH 34 pg (28-32) H 07/29/19 21:48 MCHC 35 % (32-34) H 07/29/19 21:48 RDW 13.4 % (13.2-15.2) 07/29/19 21:48 Plt Count 339 K/mm3 (140-440) 07/29/19 21:48 Lymph % (Auto) 13.5 % (13.4-35.0) 07/29/19 21:48 [place] % (Auto) 8.0 % (0.0-7.3) H 07/29/19 21:48 Eos % (Auto) 0.2 % (0.0-4.3) 07/29/19 21:48 Baso % (Auto) 0.4 % (0.0-1.8) 07/29/19 21:48 Lymph # 1.0 K/mm3 (1.2-5.4) L 07/29/19 21:48 [place] # 0.6 K/mm3 (0.0-0.8) 07/29/19 21:48 Eos # 0.0 K/mm3 (0.0-0.4) 07/29/19 21:48 Baso # 0.0 K/mm3 (0.0-0.1) 07/29/19 21:48 Seg Neutrophils % 77.9 % (40.0-70.0) H 07/29/19 21:48 Seg Neutrophils # 6.0 K/mm3 (1.8-7.7) 07/29/19 21:48 PT 12.8 Sec. (12.2-14.9) 07/30/19 10:33 INR 0.99 (0.87-1.13) 07/30/19 10:33 APTT 30.3 Sec. (24.2-36.6) 07/29/19 21:48 Sodium 138 mmol/L (137-145) 07/29/19 21:48 Potassium 4.0 mmol/L (3.6-5.0) 07/29/19 21:48 Chloride 100.8 mmol/L (98-107) 07/29/19 21:48 Carbon Dioxide 22 mmol/L (22-30) 07/29/19 21:48 19 mmol/L 07/29/19 21:48 BUN 7 mg/dL (9-20) L 07/29/19 21:48 0.9 mg/dL (0.8-1.5) 07/29/19 21:48 Estimated GFR > 60 ml/min 07/29/19 21:48 8 % 07/29/19 21:48 Glucose 131 mg/dL (75-100) H 07/29/19 21:48 Calcium 9.7 mg/dL (8.4-10.2) 07/29/19 21:48 4.30 mg/dL (0.1-1.2) H 07/30/19 10:33 3.6 mg/dL (0-0.2) H 07/30/19 10:33 0.7 mg/dL 07/30/19 10:33 AST 77 units/L (5-40) H 07/30/19 10:33 ALT 82 units/L (7-56) H 07/30/19 10:33 360 units/L (35-129) H 07/30/19 10:33 < 0.010 ng/mL (0.00-0.029) 07/30/19 00:16 6.2 g/dL (6.3-8.2) L 07/30/19 10:33 3.5 g/dL (3.9-5) L 07/30/19 10:33 1.3 % 07/30/19 10:33 669 units/L (13-60) H 07/30/19 10:33 Mia (Yellow) 07/30/19 01:38 Clear (Clear) 07/30/19 01:38 7.0 (5.0-7.0) 07/30/19 01:38 Ur Specific [place] 1.009 (1.003-1.030) 07/30/19 01:38 <15 mg/dl mg/dL (Negative) 07/30/19 01:38 Neg mg/dL (Negative) 07/30/19 01:38 Tr mg/dL (Negative) 07/30/19 01:38 Neg (Negative) 07/30/19 01:38 Neg (Negative) 07/30/19 01:38 Neg (Negative) 07/30/19 01:38 2.0 mg/dL (<2.0) 07/30/19 01:38 Ur Leukocyte Esterase Neg (Negative) 07/30/19 01:38 1.0 /HPF (0.0-6.0) 07/30/19 01:38 2.0 /HPF (0.0-6.0) 07/30/19 01:38 Presumptive negative 07/30/19 05:34 Presumptive negative 07/30/19 05:34 Ur Barbiturates Screen Presumptive negative 07/30/19 05:34 Ur Phencyclidine Scrn Presumptive negative 07/30/19 05:34 Ur Amphetamines Screen Presumptive negative 07/30/19 05:34 U Benzodiazepines Scrn Presumptive negative 07/30/19 05:34 Presumptive negative 07/30/19 05:34 U Marijuana (THC) Screen Presumptive positive 07/30/19 05:34 Disclamer 07/30/19 05:34 Active Medications - Current Medications Current Medications: Generic Name Dose Route Start Last Admin Trade Name Freq PRN Reason Stop Dose Admin Acetaminophen 650 mg 07/30/19 04:56 Tylenol PO Q4H PRN Pain MILD(1-3)/Fever >100.5/MUNGUIA Enoxaparin Sodium 40 mg 07/30/19 10:00 Lovenox SUB-Q QDAY HARVINDER Hydralazine HCl 10 mg 07/30/19 05:33 Apresoline IV Q4H PRN Blood Pressure Hydromorphone HCl 0.5 mg 07/30/19 04:56 Dilaudid IV Q3H PRN Pain , Severe (7-10) Sodium Chloride 1,000 mls @ 100 mls/hr 07/30/19 05:00 07/30/19 06:54 Nacl 0.9% 1000 Ml IV 100 mls/hr DIRECT HARVINDER Administration Metoclopramide HCl 10 mg 07/30/19 04:56 Reglan IV Q6H PRN Nausea And Vomiting Morphine Sulfate 2 mg 07/30/19 04:56 Morphine IV Q4H PRN Pain, Moderate (4-6) Ondansetron HCl 4 mg 09/12/19 04:56 Zofran IV Q6H PRN Nausea And Vomiting Sodium Chloride 10 ml 07/30/19 10:00 Sodium Chloride Flush Syringe 10 Ml IV BID HARVINDER Sodium Chloride 10 ml 07/30/19 04:56 Sodium Chloride Flush Syringe 10 Ml IV PRN PRN LINE FLUSH
[2019-07-30] MEDS: SODIUM CHLORIDE FLUSH SYRINGE 10 ML IV SCH (13:24)
[2019-07-30] MEDS: LOVENOX SUB-Q SCH (13:24)
[2019-07-31] MEDS: SODIUM CHLORIDE FLUSH SYRINGE 10 ML IV SCH ×2 (02:53→14:45)
[2019-07-31] MEDS: NACL 0.9% 1000 ML 1,000 ML IV SCH (05:19)
[2019-07-31 06:22] LABS: Hematocrit 42.5 % (35.5-45.6); Hemoglobin 14.5 gm/dl (11.8-15.2); Mean Corpuscular HGB Conc 34 % (32-34); Mean Corpuscular Volume 96 fl (84-94); Platelet Count 282 K/mm3 (140-440); Red Blood Count 4.42 M/mm3 (3.65-5.03); Red Cell Distribution Width 13.5 % (13.2-15.2)
[2019-07-31 06:49] LABS: Alanine Aminotransferase 76 units/L (7-56); Albumin 3.2 g/dL (3.9-5); BUN/Creatinine Ratio 9; Blood Urea Nitrogen 8 mg/dL (9-20); Calcium 9.2 mg/dL (8.4-10.2); Hemolysis Index 3
[2019-07-31] MEDS ORDERED: NACL 0.9% 1000 ML 1,000 ML IV SCH (10:00)
[2019-07-31] MEDS ORDERED: NACL 0.9% 100 ML ONE (10:01)
[2019-07-31] MEDS ORDERED: WATER FOR IRRIG STERILE IR ONE (10:01)
--- NOTE | 2019-07-31 10:52 | Anesthesia Consultation ---
Anesthesia Consult and Med Hx Date of service: 07/31/19 - Airway Anesthetic Teeth Evaluation: Poor (some missing teeth) ROM Head & Neck: Adequate Mental/Hyoid Distance: Adequate Mallampati Class: Class II Intubation Access Assessment: Probably Good - Pre-Operative Health Status ASA Pre-Surgery Classification: ASA3 Proposed Anesthetic Plan: MAC - Pulmonary Hx Smoking: Yes (current smoker) Hx Asthma: No COPD: No Hx Pneumonia: No - Cardiovascular System Hx Hypertension: Yes - Central Nervous System Hx Seizures: No CVA: No - Gastrointestinal Hx Gastroesophageal Reflux Disease: Yes - Endocrine Hx End Stage Renal Disease: No Hx Liver Disease: Yes (choledocholithiasis) - Other Systems Hx Alcohol Use: Yes Hx Substance Use: Yes (marijuana) Hx Cancer: No
--- NOTE | 2019-07-31 10:54 | Anesthesia Day of Surgery ---
Anesthesia Day of Surgery - Day of Surgery Patient Examined: Yes Patient H&P Reviewed: Yes Patient is NPO: Yes
[2019-07-31] MEDS ORDERED: XYLOCAINE MPF 2% ONE (11:18)
[2019-07-31] MEDS ORDERED: DILAUDID ONE (11:19)
[2019-07-31] MEDS ORDERED: DIPRIVAN 10 MG/ML IV ONE (11:19)
[2019-07-31] MEDS ORDERED: VERSED ONE (11:19)
--- NOTE | 2019-07-31 11:54 | Post Operative Note ---
Pre-op diagnosis: CBD stones Post-op diagnosis: same Findings: 1. Normal major papilla. 2. CBD dilated to 12 mm, with multiple filling defects. 6 mm sphincterotomy done, and duct swept repeatedly with return of multiple yellow stones, upto 9 mm in size. 3. Pancreatic duct is not visualized. Procedure: ERCP with sphincterotomy and stone removal Anesthesia: MAC Surgeon: ALYCIA HENSON Estimated blood loss: none Pathology: none Condition: stable Disposition: floor (May try clears at 1400, and D/C if tolerates. No ASA/NSAIDs x 2 wks. Elective cholecystectomy.)
--- NOTE | 2019-07-31 13:26 | Fluoroscopy Report ---
FLUOROSCOPY ERCP BILIARY DUCT HISTORY: Choledocholithiasis FINDINGS: Fluoroscopy was provided by radiology during ERCP by the biodiesel plant manager. 2 fluoroscopic images of the right upper quadrant are presented. The images demonstrate balloon sweep of the common bile duct to remove multiple stones. Please correlate with the procedural report by the gastroentero logist. Signer Name: Edwar Rizzo Jr, MD Signed: 07/31/2019 1:22 PM Workstation Name: [id number]
[2019-07-31] MEDS: LOVENOX SUB-Q SCH (14:45)
--- NOTE | 2019-07-31 14:59 | Progress Note ---
Assessment and Plan - Patient Problems (1) Biliary acute pancreatitis Current Visit: Yes Status: Acute Qualifiers: Acute pancreatitis complication: no infection or necrosis Qualified Code(s): K85.10 - Biliary acute pancreatitis without necrosis or infection Plan to address problem: Pt stable. Clinically, it appears the pancreatitis has resolved. We previously discussed that normally, in this situation, we would remove the gallbladder prior to discharge to avoid the risk of recurrent pancreatitis. In light of his mother's upcoming , we could consider discharging him once he is able to tolerate a liquid diet. We would keep him on a liquid diet and then bring him back electively for surgery. I reminded him that we run the risk that in the interim, he may have another episode of pancreatitis. We cannot predict, but it could be worse the next time. Another complicating factor is that he just started a new job. It does not look as though his insurance has started yet. 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 Discussed the situation with Drs. Hammond and Genevieve. Ok to d/c home in light of his mother's tomorrow. Will try to get cholecystectomy done soon after. Please call with questions. Time=15min Subjective Date of service: 07/31/19 Patient Reports: Positive: no new complaints, feels better, tolerating liquids well. Negative: nausea, vomiting Objective Vital Signs - 12hr 07/31/19 07/31/19 07/31/19 05:48 10:45 10:51 Temperature 98.0 F 98.2 F 98.2 F Pulse Rate 35 L 65 65 Respiratory 18 16 16 Rate Blood Pressure 137/65 158/83 158/83 O2 Sat by Pulse 98 98 98 Oximetry 07/31/19 07/31/19 07/31/19 11:54 12:09 12:24 Temperature 98.0 F Pulse Rate 84 74 74 Respiratory 17 14 14 Rate Blood Pressure 132/83 137/79 129/82 O2 Sat by Pulse 100 99 97 Oximetry 07/31/19 12:57 Temperature 97.6 F Pulse Rate 65 Respiratory 16 Rate Blood Pressure 137/88 O2 Sat by Pulse 98 Oximetry - General physical appearance well developed, well nourished, no distress, no pain, other (looks well) - Eyes normal occular movement - Respiratory normal expansion, normal respiratory effort - Abdomen soft, not tender, distended (mild), not guarding, not rigid - Psychiatric oriented to time, oriented to person, oriented to place, speech is normal, memory intact - Labs 07/31/19 05:37 07/31/19 05:37 Diabetes panel 07/31/19 Range/Units 05:37 Sodium 138 (137-145) mmol/L Potassium 3.8 (3.6-5.0) mmol/L Chloride 100.6 (98-107) mmol/L Carbon Dioxide 21 L (22-30) mmol/L BUN 8 L (9-20) mg/dL Creatinine 0.9 (0.8-1.5) mg/dL Glucose 87 (75-100) mg/dL Calcium 9.2 (8.4-10.2) mg/dL AST 83 H (5-40) units/L ALT 76 H (7-56) units/L Alkaline Phosphatase 314 H (35-129) units/L Total Protein 6.3 (6.3-8.2) g/dL Albumin 3.2 L (3.9-5) g/dL Calcium panel 07/31/19 Range/Units 05:37 Calcium 9.2 (8.4-10.2) mg/dL Albumin 3.2 L (3.9-5) g/dL Pituitary panel 07/31/19 Range/Units 05:37 Sodium 138 (137-145) mmol/L Potassium 3.8 (3.6-5.0) mmol/L Chloride 100.6 (98-107) mmol/L Carbon Dioxide 21 L (22-30) mmol/L BUN 8 L (9-20) mg/dL Creatinine 0.9 (0.8-1.5) mg/dL Glucose 87 (75-100) mg/dL Calcium 9.2 (8.4-10.2) mg/dL Adrenal panel 07/31/19 Range/Units 05:37 Sodium 138 (137-145) mmol/L Potassium 3.8 (3.6-5.0) mmol/L Chloride 100.6 (98-107) mmol/L Carbon Dioxide 21 L (22-30) mmol/L BUN 8 L (9-20) mg/dL Creatinine 0.9 (0.8-1.5) mg/dL Glucose 87 (75-100) mg/dL Calcium 9.2 (8.4-10.2) mg/dL Total Bilirubin 4.20 H (0.1-1.2) mg/dL AST 83 H (5-40) units/L ALT 76 H (7-56) units/L Alkaline Phosphatase 314 H (35-129) units/L Total Protein 6.3 (6.3-8.2) g/dL Albumin 3.2 L (3.9-5) g/dL
[2019-07-31 15:23] LABS: Creatine Kinase MB 2.2 ng/mL (0.0-4.0)
--- NOTE | 2019-07-31 15:55 | Discharge Summary ---
Providers - Providers Date of Admission: 07/30/19 06:17 Date of discharge: 07/31/19 Attending physician: LETTY LY 07/30/19 04:56 Consult to Physician [CONS] Routine Comment: Consulting Provider: BRITTNEY CERNA Physician Instructions: Reason For Exam: acute pancreatitis, cholelithiasis 07/30/19 04:59 Consult to Physician [CONS] Routine Comment: Consulting Provider: SALEEM CHAN Physician Instructions: Reason For Exam: acute pancreatitis, cholelithiasis 07/30/19 15:24 Consult to Case Management [CONS] Routine Services Needed at Discharge: Other Notified:: copy given to cm Additional Physician Instructions: Pt would like to have surgery as an out-pt but is unsure of his insurance status. May need financial assistance. Please evaluate. 07/31/19 10:13 Consult to Physician [CONS] Routine Comment: Consulting Provider: FILI LOZOYA Physician Instructions: Reason For Exam: Bradycardia Primary care physician: PAN HELPER Hospitalization Condition: Fair Disposition: DC-01 TO HOME OR SELFCARE Core Measure Documentation - Palliative Care Palliative Care/ Comfort Measures: Not Applicable - Core Measures Any of the following diagnoses?: none Exam - Constitutional Vitals: Temp Pulse Resp BP Pulse Ox 97.6 F 65 16 137/88 98 07/31/19 12:57 07/31/19 12:57 07/31/19 12:57 07/31/19 12:57 07/31/19 12:57 Plan Activity: advance as tolerated Diet: low fat, low cholesterol, low salt, other (Clear liquid today, then Low fat diet starting tomorrow 08/01) Plan of Treatment: 1.Follow up with PCP or [facility] in 1 week. 2.Follow up with Dr. Hammond, GI in 1 week 3.Follow up with Dr. Little,Surgeon in 1 week 4.follow up with Dr. Lozoya, cardiology in 1 week 5.Repeat CMP on Saturday08/03/19 to send copy to Dr. Little surgeon Follow up with: PRIMARY MD TIANA [Primary Care Provider] - 7 Days
[2019-07-31 16:20] VITALS: BP 140/74
--- NOTE | 2019-07-31 16:28 | Post Anesthesia Evaluation ---
- Post Anesthesia Evaluation Patient Participated: Yes Airway Patent: Yes Stable Respiratory Function: Yes Nausea/Vomiting: No Temp > 96.8F: Yes Pain Manageable: Yes Adequeate Hydration: Yes Anesthesia Complications: No Block Receding Appropriately: Not Applicable Patient on Ventilator: No
--- NOTE | 2019-07-31 16:47 | Consultation ---
History of Present Illness Consult date: 07/31/19 Consult reason: bradycardia History of present illness: The patient's is 63-year-old man admitted with abdominal pain, vomiting and markedly abnormal liver enzymes. The total bilirubin was 3.3-4.3, the lipase was greater than 700, and the liver transaminases were all elevated. Ultimately, he underwent GI endoscopic evaluation including ERCP which was successful in extraction of biliary duct stones. Cardiovascular consultation is requested for the finding of transient bradycardia during his hospital course. There was no cardiac complaints of dizziness so palpitations, and no cardiac related chest pain. The bradycardia was transient and appeared not to have been captured on a engine monitor. His ECGs and telemetry strips otherwise show a stable sinus rhythm with current heart rate 76. The ECG on presentation did show isolated PVCs but no acute ST or T-wave abnormalities. Past History Past Medical History: HIV/AIDS, hypertension, other (BPH) Past Surgical History: appendectomy Social history: , lives with family (with sister), smoking (smokes cigar and marijuana), other (drinks beer occasionally) Family history: no significant family history Medications and Allergies Allergies Allergy/AdvReac Type Severity Reaction Status Date / Time ciprofloxacin Allergy Itching Verified 07/30/19 05:30 Home Medications Medication Instructions Recorded Confirmed Last Taken Type Emtricita/Rilpivirine/Tenof Df 1 each PO DAILY 07/30/19 07/30/19 Unknown History [Complera Tablet] Tamsulosin [Flomax] 0.4 mg PO QDAY 07/30/19 07/30/19 Unknown History amLODIPine [Norvasc] 10 mg PO DAILY 07/30/19 07/30/19 Unknown History HYDROcodone/APAP 5-325 [[place] 1 each PO Q6HR PRN #10 tablet 07/31/19 Unknown Rx 5/325] Active Meds: Active Medications Acetaminophen (Tylenol) 650 mg PO Q4H PRN PRN Reason: Pain MILD(1-3)/Fever >100.5/MUNGUIA Enoxaparin Sodium (Lovenox) 40 mg SUB-Q QDAY HARVINDER Last Admin: 07/31/19 14:45 Dose: 40 mg Documented by: Hydralazine HCl (Apresoline) 10 mg IV Q4H PRN PRN Reason: Blood Pressure Hydromorphone HCl (Dilaudid) 0.5 mg IV Q3H PRN PRN Reason: Pain , Severe (7-10) Sodium Chloride (Nacl 0.9% 1000 Ml) 1,000 mls @ 100 mls/hr IV DIRECT HARVINDER Last Admin: 07/31/19 05:19 Dose: 100 mls/hr Documented by: Sodium Chloride (Nacl 0.9% 1000 Ml) 1,000 mls @ 50 mls/hr IV DIRECT HARVINDER Stop: 08/01/19 09:59 Last Admin: 07/31/19 10:55 Dose: 50 mls/hr Documented by: Metoclopramide HCl (Reglan) 10 mg IV Q6H PRN PRN Reason: Nausea And Vomiting Morphine Sulfate (Morphine) 2 mg IV Q4H PRN PRN Reason: Pain, Moderate (4-6) Ondansetron HCl (Zofran) 4 mg IV Q6H PRN PRN Reason: Nausea And Vomiting Sodium Chloride (Sodium Chloride Flush Syringe 10 Ml) 10 ml IV BID [facility] Last Admin: 07/31/19 14:45 Dose: 10 ml Documented by: Sodium Chloride (Sodium Chloride Flush Syringe 10 Ml) 10 ml IV PRN PRN PRN Reason: LINE FLUSH Review of Systems Cardiovascular: no chest pain, no orthopnea, no palpitations, no rapid/irregular heart beat, no edema, no syncope, no lightheadedness, no shortness of breath Physical Examination Vital Signs Temp Pulse Resp BP Pulse Ox 98 F 74 20 161/86 99 07/29/19 21:21 07/29/19 21:21 07/29/19 21:21 07/29/19 21:21 07/29/19 21:21 General appearance: no acute distress HEENT: Positive: PERRL Neck: Positive: neck supple Cardiac: Positive: Reg Rate and Rhythm Lungs: Positive: clear to auscultation Neuro: Positive: Grossly Intact Abdomen: Positive: Soft Male genitourinary: Positive: deferred Skin: Positive: Clear Extremities: Absent: edema Results 07/31/19 05:37 07/31/19 05:37 Cardiac Enzymes 07/31/19 07/31/19 Range/Units 05:37 14:13 AST 83 H (5-40) units/L CK-MB (CK-2) 2.2 (0.0-4.0) ng/mL CBC 07/31/19 Range/Units 05:37 WBC 6.0 (4.5-11.0) K/mm3 RBC 4.42 (3.65-5.03) M/mm3 Hgb 14.5 (11.8-15.2) gm/dl Hct 42.5 (35.5-45.6) % Plt Count 282 (140-440) K/mm3 Comprehensive Metabolic Panel 07/31/19 Range/Units 05:37 Sodium 138 (137-145) mmol/L Potassium 3.8 (3.6-5.0) mmol/L Chloride 100.6 (98-107) mmol/L Carbon Dioxide 21 L (22-30) mmol/L BUN 8 L (9-20) mg/dL Creatinine 0.9 (0.8-1.5) mg/dL Glucose 87 (75-100) mg/dL Calcium 9.2 (8.4-10.2) mg/dL AST 83 H (5-40) units/L ALT 76 H (7-56) units/L Alkaline Phosphatase 314 H (35-129) units/L Total Protein 6.3 (6.3-8.2) g/dL Albumin 3.2 L (3.9-5) g/dL EKG interpretations - Telemetry EKG Rhythm: Sinus Rhythm Assessment and Plan - Patient Problems (1) Bradycardia Current Visit: Yes Status: Acute Plan to address problem: Transient bradycardia in this clinical setting is likely due to enhanced vasal depressor reaction to his acute gastrointestinal disease. No further cardiac workup is indicated in the absence of cardiac symptoms. Patient is stable for cardiac discharge, we have asked that he follows up in the office in 2-4 weeks.
== END 2019-07-31 20:10 | disposition home or self-care (01) | DRG 444 ==
LOC: ED 20:55 → 3A 07-30 06:17
PROVIDERS: ADMIT Internal Medicine; ATTEND Internal Medicine
PROC: 0FC98ZZ Extirpation of Matter from Common Bile Duct, Via Natural or Artificial Opening Endoscopic (ICD-10-PCS; principal; 2019-07-31)
PROC: BF101ZZ Fluoroscopy of Bile Ducts using Low Osmolar Contrast (ICD-10-PCS; 2019-07-31)
DX: K80.50 Calculus of bile duct without cholangitis or cholecystitis without obstruction (principal); K85.10 Biliary acute pancreatitis without necrosis or infection; B20 Human immunodeficiency virus [HIV] disease; I10 Essential (primary) hypertension; K21.9 Gastro-esophageal reflux disease without esophagitis; F17.210 Nicotine dependence, cigarettes, uncomplicated; B19.20 Unspecified viral hepatitis C without hepatic coma; F12.90 Cannabis use, unspecified, uncomplicated; R00.1 Bradycardia, unspecified; N40.0 Benign prostatic hyperplasia without lower urinary tract symptoms; Z72.89 Other problems related to lifestyle; Z90.49 Acquired absence of other specified parts of digestive tract; Z79.899 Other long term (current) drug therapy; Z71.6 Tobacco abuse counseling
CPT/HCPCS: 36415; 71046; 74177; 74328; 80053; 80076; 80307; 81001; 82550; 82553; 83690; 84484; 85025; 85027; 85610; 85730; 93005; 93010; 96361; 96374; 96375; G0378; C1726; J1170; J1650; J2250; J2405; J2704; J7030; Q9967